=== PATIENT | female | born 1985 | race Caucasian/White ===

== ENCOUNTER 2021-04-05 20:42 | Emergency (ER) | payer BC, SELFPAY ==
[2021-04-05 20:46] VITALS: BP 162/89; PULSE 81; RESP 16; TEMP 36.6; O2SAT 100
--- NOTE | 2021-04-05 22:41 | PC.NURSE ---
pt called for triage at 2146 and 2153 without reply. pt not observed in waiting room.
== END 2021-04-05 22:41 | disposition left against medical advice (07) ==
DX: R51.9 Headache, unspecified (principal)
CPT/HCPCS: 99199

== ENCOUNTER 2021-06-08 18:45 | Emergency (ER) | payer BC, SELFPAY ==
--- NOTE | ~2021-06-08 | XR_ITS ---
XR chest 2V DATE: 06/08/2021 19:15 INDICATION: Midsternal chest pain, shortness of breath, vomiting. Smoker. TECHNIQUE: PA and lateral views COMPARISON: None FINDINGS: There is mild to moderate thoracic dextroscoliosis. No pulmonary infiltrate or consolidation, pleural effusion or pulmonary vascular congestion or pneumo thorax. Normal heart size. No hilar or mediastinal enlargement. IMPRESSION: No active cardiopulmonary disease Reviewed, dictated and finalized at location A.
--- NOTE | 2021-06-08 18:51 | ECG_ITS ---
Measurements Intervals [place] Rate: 90 P: 68 NM: 150 QRS: 41 QRSD: 72 T: 39 QT: 332 QTc: 408 Interpretive Statements SINUS RHYTHM POSSIBLE LEFT ATRIAL ENLARGEMENT BORDERLINE T WAVE ABNORMALITY- INFERIOR LEADS BORDERLINE ECG Electronically Signed On 06-08-2021 20:59:11 CDT by Santana Milian D.O.
[2021-06-08 20:06] VITALS: BP 122/66; PULSE 96; RESP 17; TEMP 37.8; O2SAT 100
[2021-06-08 20:32] LABS: Basophils Percent Auto 0.7 % (0.2-1.2); Eosinophils Absolute Auto 0.2 K/mm3 (0-0.3); Hematocrit 32.5 % (37.0-47.0); Hemoglobin 10.3 g/dL (12.0-15.0); Immature Granulocyte Absolute 0.02 K/mm3 (0.00-0.031); Immature Granulocyte Percent A 0.3 % (0-0.5); Lymphocytes Absolute Auto 0.63 K/mm3 (0.9-3.2); Lymphocytes Percent Auto 10.6 % (18.3-44.2); Mean Corpuscular HGB Conc 31.7 g/dl (32-36); Mean Corpuscular Volume 69.4 fl (80-100); Mean Platelet Volume 9.6 fl (7.4-10.4); Monocytes Absolute Auto 1.4 K/mm3 (0.1-0.6); Monocytes Percent Auto 23.5 % (2.6-8.5); Neutrophils Absolute Auto 3.7 K/mm3 (1.3-6.7); Neutrophils Percent Auto 61.9 % (45.5-73.1); Platelet Count Result 295 k/mm3 (150-375); Red Blood Count 4.68 M/mm3 (4.2-5.4); Red Cell Distribution Width 16.5 % (11.5-14.5); White Blood Count 5.9 K/mm3 (4.5-10.0)
[2021-06-08 20:38] LABS: Anion Gap 6 mmol/L (8-16); Blood Urea Nitrogen 10 mg/dL (7-17); Calcium 9.2 mg/dL (8.4-10.2); Carbon Dioxide 26 mmol/L (22-30); Chloride 101 mmol/L (98-107); Estimated Glomerular Filt Rate > 60; Glucose 92 mg/dL (65-110); Potassium 3.3 mmol/L (3.4-5.0); Sodium 133 mmol/L (137-145)
[2021-06-08 20:45] LABS: INR 0.9; Prothrombin Time 12.5 Seconds (11.1-14.7)
[2021-06-08 20:46] LABS: Partial Thromboplastin Time 34.9 SECONDS (22.3-36.8)
[2021-06-08 20:49] LABS: Troponin I < 0.012 ng/mL (0.000-0.034)
--- NOTE | 2021-06-08 23:50 | PC.NURSE ---
no answer from pt when called name in waiting room to room the patient. 2343 n/a, 2350 n/a
== END 2021-06-08 23:50 | disposition left against medical advice (07) ==
LOC: ANHED 06-09 00:14
PROVIDERS: Emergency Provider Emergency Medicine
DX: R07.9 Chest pain, unspecified (principal)
CPT/HCPCS: 36415; 71046; 80048; 84484; 85025; 85610; 85730; 93005; 99199